=== PATIENT | male | born 1945 | race Caucasian/White ===

== ENCOUNTER 2016-11-28 21:31 | Emergency (ER) | payer MEDICARE, OTHER ==
[2016-11-28] MEDS ORDERED: Cephalexin CAP* 500 MG PO ONE ×2 (22:31)
--- NOTE | 2016-11-28 22:42 | ED ---
Skin Complaint - HPI Summary HPI Summary: Patient presents with redness and pain on his anterolateral left calf. 3 days ago he noticed a pimple on his leg and over the next two days it became more irritated. He has peripheral edema at baseline, with the left greater than the right, and wears compression stockings. Today he gardened all day and his leg was irritated by the stockings by the end of the day. He denies fever, chills, drainage, calf pain or SOB. - History of Current Complaint Chief Complaint: EDExtremityLower Time Seen by Provider: 11/28/16 21:58 Stated Complaint: LEFT LEG INFECTION/SPREADING Hx Obtained From: Patient Onset/Duration: Started Days Ago - 3 Timing: Constant Onset Severity: Mild Current Severity: Moderate Pain Intensity: 6 Skin Location: Leg Character: Swelling, Pain, Redness Aggravating Symptom(s): Touch Alleviating Symptom(s): Nothing Associated Signs & Symptoms: Tenderness - Allergy/Home Medications Allergies/Adverse Reactions: Allergies Allergy/AdvReac Type Severity Reaction Status Date / Time No Known Allergies Allergy Verified 12/28/14 15:46 Home Medications: Home Medications Nisoldipine [Sular] 5 mg PO 11/28/16 [History] PMH/Surg Hx/FS Hx/Imm Hx Cardiovascular History: Reports: Hx Atrial Fibrillation, Hx Deep Vein Thrombosis , Hx Myocardial Infarction Infectious Disease History: No Infectious Disease History: Denies: Traveled Outside the [place] in Last 30 Days - Family History Known Family History: Positive: Cardiac Disease, Hypertension - Social History Occupation: Retired Lives: With Family Alcohol Use: None Substance Use Type: Reports: None Smoking Status (MU): Former Smoker Review of Systems Negative: Fever, Chills Positive: Other - erythema left anterolateral roberts Negative: Paresthesia, Numbness All Other Systems Reviewed And Are Negative: Yes Physical Exam Triage Information Reviewed: Yes Vital Signs On Initial Exam: Initial Vitals Temp Pulse Resp BP Pulse Ox 99 F 78 18 135/73 99 11/28/16 21:35 11/28/16 21:35 11/28/16 21:35 11/28/16 21:35 11/28/16 21:35 Vital Signs Reviewed: Yes Appearance: Positive: Well-Appearing, No Pain Distress, Well-Nourished Skin: Positive: Warm, Skin Color Reflects Adequate Perfusion, Dry, Tender, Soft , Erythema @ - 3 cm area of erythema without fluctuance or streaking. Head/Face: Positive: Normal Head/Face Inspection Eyes: Positive: EOMI, KAYCEE, Conjunctiva Clear ENT: Positive: Hearing grossly normal Respiratory/Lung Sounds: Positive: Breath Sounds Present Cardiovascular: Positive: RRR Musculoskeletal: Positive: Strength/ROM Intact, Pain @ - TTP anterolateral aspect of left roberts, Edema Left - baseline. Negative: Carter Sign Left Neurological: Positive: Sensory/Motor Intact, Alert, Oriented to Person Place, Time, NV Bundle Intact Distally, Normal Gait Psychiatric: Positive: Affect/Mood Appropriate AVPU Assessment: Alert - [place] Coma Scale Coma Scale Total: 15 Diagnostics - Vital Signs Vital Signs Temp Pulse Resp BP Pulse Ox 11/28/16 21:44 98.8 F 77 16 131/88 96 11/28/16 21:35 99 F 78 18 135/73 99 - Laboratory Lab Statement: Any lab studies that have been ordered have been reviewed, and results considered in the medical decision making process. Course/Dx - Differential Diagnoses - Skin Complaint Differential Diagnoses: Abscess, Cellulitis, Contact Dermatitis, Local Allergic Reaction, MRSA, Urticaria - Diagnoses Provider Diagnoses: Cellulitis Discharge - Discharge Plan Condition: Stable Disposition: HOME Prescriptions: Cephalexin CAP* [Keflex CAP*] 500 mg PO QID #39 cap Patient Education Materials: Cellulitis (ED) Referrals: Ned Easley MD [Primary Care Provider] - Additional Instructions: Please take the antibiotics as prescribed until they are completely gone. Elevate your leg above your heart to decrease swelling. Antibiotics can increase the blood thinning effects of Warfarin so let your provider know you have begun this medication. Follow-up with your PCP on Wednesday for re- evaluation. Return to the emergency department is symptoms worsen.
[2016-11-28 23:13] VITALS: BP 128/78
== END 2016-11-28 23:22 | disposition home or self-care (01) ==
LOC: ED 21:31
DX: L03.90 Cellulitis, unspecified (principal); L53.9 Erythematous condition, unspecified; Z87.891 Personal history of nicotine dependence
CPT/HCPCS: 99282; A9270-GY

== ENCOUNTER 2018-11-13 15:03 | Emergency (ER) | payer MEDICARE, OTHER ==
[2018-11-13 15:16] VITALS: BP 132/72
--- NOTE | 2018-11-13 16:41 | ED ---
Lower Extremity - HPI Summary HPI Summary: Pt. is a 73 y.o male who presents to the ER for right foot pain that started last night. Pt. states he was working in his garden yesterday, digging up dirt with a shovel using his right foot. Pt. states he noticed pain to his right foot last night. Pt. took a dose of motrin and pain improved. Pt. states his sister was concerned he may have a DVT. Pt. notes hx of a fib and is on eliquis. Sxs are mild in severity. Walking makes sxs worse. Rest makes sxs better. - History of Current Complaint Chief Complaint: EDExtremityLower Stated Complaint: "RT FOOT POSSIBLE BLOOD CLOT PER PT" Time Seen by Provider: 11/13/18 15:25 Hx Obtained From: Patient Pain Intensity: 3 - Allergies/Home Medications Allergies/Adverse Reactions: Allergies Allergy/AdvReac Type Severity Reaction Status Date / Time No Known Allergies Allergy Verified 11/13/18 15:11 PMH/Surg Hx/FS Hx/Imm Hx Previously Healthy: Yes Cardiovascular History: Reports: Hx Atrial Fibrillation, Hx Deep Vein Thrombosis , Hx Myocardial Infarction Infectious Disease History: No Infectious Disease History: Denies: Traveled Outside the [place] in Last 30 Days - Family History Known Family History: Positive: Cardiac Disease, Hypertension - Social History Occupation: Retired Lives: Alone Alcohol Use: None Substance Use Type: Reports: None Smoking Status (MU): Former Smoker Review of Systems Skin: Negative Neurological: Negative Negative: Weakness, Paresthesia, Numbness All Other Systems Reviewed And Are Negative: Yes Physical Exam Triage Information Reviewed: Yes Vital Signs On Initial Exam: Initial Vitals Temp Pulse Resp BP Pulse Ox 98.2 F 64 18 132/72 97 11/13/18 15:11 11/13/18 15:11 11/13/18 15:11 11/13/18 15:11 11/13/18 15:11 Vital Signs Reviewed: Yes Appearance: Positive: Well-Appearing - Pt. sitting on bed in NAD, reading a newspaper. Skin: Positive: Warm, Dry Head/Face: Positive: Normal Head/Face Inspection Eyes: Positive: Normal, EOMI Neck: Positive: Supple Musculoskeletal: Positive: Other - Good right pedal pulse. Pain on palpation to lateral right foot. No wounds or redness. No calf tenderness, edema or erythema. Neurological: Positive: Normal, CN Intact II-III Psychiatric: Positive: Affect/Mood Appropriate Diagnostics - Vital Signs Vital Signs Temp Pulse Resp BP Pulse Ox 11/13/18 15:11 98.2 F 64 18 132/72 97 - Laboratory Lab Statement: Any lab studies that have been ordered have been reviewed, and results considered in the medical decision making process. Lower Extremity Course/Dx - Course Course Of Treatment: Pt. with foot pain after digging with a shovel. No evidence of DVT or infection on exam. Xray shows chronic changes per radiology. Pt. re-assured. To ice and elevate. Advised to avoid motrin and take tylenol. To r.u with PCP if pain persist. Pt. understands and agrees with plan. Will return to ER for calf pain or swelling. - Diagnoses Differential Diagnosis/HQI/PQRI: Positive: Contusion, Fracture (Closed), Sprain , Strain Provider Diagnoses: Foot sprain Discharge - Sign-Out/Discharge Documenting (check all that apply): Patient Departure Patient Received Moderate/Deep Sedation with Procedure: No - Discharge Plan Condition: Good Disposition: HOME Patient Education Materials: Foot Sprain (ED) Referrals: Ned Easley MD [Primary Care Provider] - Additional Instructions: Follow up with your PCP if pain persist Ice and elevate intermittently Tylenol for pain as directed Return to ER for leg swelling, pain, redness, or if concerned - Billing Disposition and Condition Condition: GOOD Disposition: Home
== END 2018-11-13 17:11 | disposition home or self-care (01) ==
LOC: ED 15:03
DX: S93.601A Unspecified sprain of right foot, initial encounter (principal); X58.XXXA Exposure to other specified factors, initial encounter; Y93.H2 Activity, gardening and landscaping; Y92.017 Garden or yard in single-family (private) house as the place of occurrence of the external cause; Y99.8 Other external cause status; Z87.891 Personal history of nicotine dependence
CPT/HCPCS: 99282

== ENCOUNTER 2021-09-27 14:25 | Inpatient (IN) ==
[2021-09-27 15:00] LABS: ABS Eosinophils 0.1 10^3/ul (0-0.6); ABS Lymphocytes 0.8 10^3/ul (1.0-4.8); ABS Monocytes 0.6 10^3/ul (0-0.8); ABS Neutrophils 4.3 10^3/ul (1.5-7.7); Eosinophil % 1.6 %; Hematocrit 37 % (42-52); Hemoglobin 12.4 g/dL (14.0-18.0); Lymphocyte % 14.3 %; Mean Corpuscular HGB Conc 34 g/dL (31-36); Mean Corpuscular Hemoglobin 33 pg (27-31); Mean Corpuscular Volume 98 fL (80-94); Mean Platelet Volume 9.7 fL (7.4-10.4); Platelet Count 113 10^3/uL (150-450); Red Blood Count 3.72 10^6 /uL (4.18-5.48); Red Cell Distribution Width 15 % (10-15); White Blood Count 5.9 10^3/uL (3.5-10.8)
[2021-09-27 15:12] LABS: INR 1.41 (0.86-1.15)
[2021-09-27 16:03] LABS: High Sensitivity Troponin 1 Hr 39 pg/mL (<20)
[2021-09-27 16:08] LABS: Albumin 3.8 g/dL (3.2-5.2); Albumin/Globulin Ratio 1.7 (1-3); Calcium 8.8 mg/dL (8.6-10.3); Globulin 2.2 g/dL (2-4); Potassium 4.3 mmol/L (3.5-5.0); Total Bilirubin 1.6 mg/dL (0.2-1.0); eGFR CKD-EPI 88.9 (>60)
[2021-09-27] MEDS ORDERED: Albuterol HFA INHALER 8 gm MDI INH ONE (16:37)
[2021-09-27] MEDS ORDERED: Iodixanol (CONTRAST) 320 MG/ML 100 ML SDV IV ONE (16:38)
[2021-09-27] MEDS ORDERED: Furosemide 40 mg/4 ml IV VIAL IV SLOW PU ONE (18:18)
[2021-09-27] MEDS ORDERED: Ondansetron 4 mg VIAL 2 MG/ML 2 ml VIAL IV PRN (20:26)
[2021-09-27] MEDS: Cholecalciferol (VIT D3) 1,000 unit TAB PO SCH (23:45)
[2021-09-27] MEDS: Potassium Chlor 10 meq TAB PO SCH (23:46)
[2021-09-28 06:48] LABS: ABS Eosinophils 0.1 10^3/ul (0-0.6); ABS Lymphocytes 0.8 10^3/ul (1.0-4.8); ABS Monocytes 0.6 10^3/ul (0-0.8); ABS Neutrophils 3.9 10^3/ul (1.5-7.7); Eosinophil % 1.7 %; Hematocrit 36 % (42-52); Hemoglobin 12.4 g/dL (14.0-18.0); Lymphocyte % 15.1 %; Mean Corpuscular HGB Conc 34 g/dL (31-36); Mean Corpuscular Hemoglobin 34 pg (27-31); Mean Corpuscular Volume 98 fL (80-94); Mean Platelet Volume 9.2 fL (7.4-10.4); Platelet Count 106 10^3/uL (150-450); Red Blood Count 3.69 10^6 /uL (4.18-5.48); Red Cell Distribution Width 14 % (10-15); White Blood Count 5.4 10^3/uL (3.5-10.8)
[2021-09-28 07:25] LABS: Calcium 8.6 mg/dL (8.6-10.3); Magnesium 2.1 mg/dL (1.9-2.7); Potassium 3.7 mmol/L (3.5-5.0); eGFR CKD-EPI 92.4 (>60)
[2021-09-28] MEDS ORDERED: Potassium Chlor 20 meq TAB.ER PO ONE (07:34)
[2021-09-28 07:42] LABS: Ferritin 25.5 ng/mL (24-336)
[2021-09-28] MEDS ORDERED: Furosemide 40 mg/4 ml IV VIAL IV SLOW PU SCH (09:00)
[2021-09-28] MEDS: Potassium Chlor 10 meq TAB PO SCH ×2 (09:09→20:17)
[2021-09-28] MEDS: Aspirin EC 81 mg TAB.EC (enteric coated) PO SCH (09:10)
[2021-09-28] MEDS: Cholecalciferol (VIT D3) 1,000 unit TAB PO SCH ×2 (09:10→20:17)
[2021-09-28] MEDS: Coenzyme Q10 CAP (NF) ** ENTER STREGNTH IN LABEL DIRECTIONS PO SCH (10:56)
[2021-09-28] MEDS: FINASTERIDE 1 MG PO SCH (10:56)
[2021-09-28] MEDS ORDERED: Cyanocobalamin INJ 1,000 MCG/ML VIAL 1 ML VIAL IM ONE (13:06)
[2021-09-28] MEDS: Magnesium Hydroxide LIQ 30 ML UDC PO PRN (21:40)
[2021-09-29 05:36] LABS: ABS Eosinophils 0.2 10^3/ul (0-0.6); ABS Lymphocytes 0.9 10^3/ul (1.0-4.8); ABS Monocytes 0.6 10^3/ul (0-0.8); Eosinophil % 3.2 %; Hematocrit 37 % (42-52); Hemoglobin 12.5 g/dL (14.0-18.0); Lymphocyte % 15.5 %; Mean Corpuscular HGB Conc 34 g/dL (31-36); Mean Corpuscular Hemoglobin 34 pg (27-31); Mean Corpuscular Volume 99 fL (80-94); Mean Platelet Volume 9.6 fL (7.4-10.4); Platelet Count 111 10^3/uL (150-450); Red Blood Count 3.72 10^6 /uL (4.18-5.48); Red Cell Distribution Width 15 % (10-15); White Blood Count 5.7 10^3/uL (3.5-10.8)
[2021-09-29 05:51] LABS: Calcium 8.6 mg/dL (8.6-10.3); Magnesium 2.2 mg/dL (1.9-2.7); eGFR CKD-EPI 90.6 (>60)
[2021-09-29] MEDS ORDERED: Furosemide 40 mg/4 ml IV VIAL IV ONE (08:00)
[2021-09-29] MEDS: Potassium Chlor 10 meq TAB PO SCH ×2 (09:20→20:48)
[2021-09-29] MEDS: Aspirin EC 81 mg TAB.EC (enteric coated) PO SCH (09:21)
[2021-09-29] MEDS: Cholecalciferol (VIT D3) 1,000 unit TAB PO SCH ×2 (09:21→20:48)
[2021-09-29] MEDS: FINASTERIDE 1 MG PO SCH (09:32)
[2021-09-29] MEDS: Coenzyme Q10 CAP (NF) ** ENTER STREGNTH IN LABEL DIRECTIONS PO SCH (09:32)
[2021-09-30 06:03] LABS: ABS Eosinophils 0.2 10^3/ul (0-0.6); ABS Lymphocytes 0.9 10^3/ul (1.0-4.8); ABS Monocytes 0.5 10^3/ul (0-0.8); ABS Neutrophils 2.7 10^3/ul (1.5-7.7); Eosinophil % 4.7 %; Hematocrit 36 % (42-52); Hemoglobin 12.3 g/dL (14.0-18.0); Lymphocyte % 21.4 %; Mean Corpuscular HGB Conc 34 g/dL (31-36); Mean Corpuscular Hemoglobin 34 pg (27-31); Mean Corpuscular Volume 99 fL (80-94); Mean Platelet Volume 9.2 fL (7.4-10.4); Platelet Count 122 10^3/uL (150-450); Red Blood Count 3.65 10^6 /uL (4.18-5.48); Red Cell Distribution Width 14 % (10-15); White Blood Count 4.4 10^3/uL (3.5-10.8)
[2021-09-30 06:24] LABS: Calcium 8.8 mg/dL (8.6-10.3); Magnesium 2.3 mg/dL (1.9-2.7); Potassium 4.1 mmol/L (3.5-5.0); eGFR CKD-EPI 88.9 (>60)
[2021-09-30] MEDS ORDERED: Furosemide 40 mg/4 ml IV VIAL IV ONE (07:08)
[2021-09-30] MEDS ORDERED: Furosemide 40 mg/4 ml IV VIAL IV SLOW PU SCH (09:00)
[2021-09-30] MEDS: Cholecalciferol (VIT D3) 1,000 unit TAB PO SCH ×2 (09:36→22:32)
[2021-09-30] MEDS: Potassium Chlor 10 meq TAB PO SCH ×2 (09:37→22:31)
[2021-09-30] MEDS: Aspirin EC 81 mg TAB.EC (enteric coated) PO SCH (09:37)
[2021-09-30] MEDS: FINASTERIDE 1 MG PO SCH (09:53)
[2021-09-30] MEDS: Coenzyme Q10 CAP (NF) ** ENTER STREGNTH IN LABEL DIRECTIONS PO SCH (09:53)
[2021-09-30] MEDS ORDERED: NS 0.9% 1000 ml BAG 1,000 ML IV SCH (10:00)
[2021-09-30] MEDS ORDERED: VERAPAMIL 2.5 MG/ML 2 ML VIAL ** 5 mg/2 ml ONE (14:07)
[2021-09-30] MEDS ORDERED: fentaNYL 100 mcg/2 ml 50 MCG/ML VIAL ONE (14:07)
[2021-09-30] MEDS ORDERED: Midazolam 5 mg/5 ml VIAL 1 mg/ml 5 ml VIAL (5 mg) ONE (14:07)
[2021-09-30] MEDS ORDERED: Iohexol 350 (CONTRAST) 200 ML MDV IV ONE (14:08)
[2021-09-30] MEDS ORDERED: Heparin 2 UNITS/ML 1000 mls 2,000 ML IV ONE (14:08)
[2021-09-30] MEDS ORDERED: Heparin 1,000 UNIT/ML 10 ml (10,000 UNITS) CATHLAB/DIALYSIS ONE (14:08)
[2021-09-30] MEDS ORDERED: nitroGLYCERIN DRIP (PHA MIX) 25,000 MCG/250 ML BAG ONE (14:08)
[2021-09-30] MEDS ORDERED: Lidocaine 1% MPF 5 ML VIAL ONE (14:23)
[2021-09-30] MEDS: Enoxaparin 100 MG/ML SYR SUBCUT SCH (18:22)
[2021-09-30] MEDS: Magnesium Hydroxide LIQ 30 ML UDC PO PRN (22:39)
[2021-10-01 06:44] LABS: ABS Eosinophils 0.2 10^3/ul (0-0.6); ABS Monocytes 0.5 10^3/ul (0-0.8); ABS Neutrophils 2.5 10^3/ul (1.5-7.7); Hematocrit 35 % (42-52); Hemoglobin 11.9 g/dL (14.0-18.0); Lymphocyte % 24.6 %; Mean Corpuscular HGB Conc 34 g/dL (31-36); Mean Corpuscular Hemoglobin 34 pg (27-31); Mean Corpuscular Volume 99 fL (80-94); Mean Platelet Volume 8.9 fL (7.4-10.4); Nucleated Red Blood Cells % 0.1; Platelet Count 125 10^3/uL (150-450); Red Blood Count 3.49 10^6 /uL (4.18-5.48); Red Cell Distribution Width 15 % (10-15); White Blood Count 4.2 10^3/uL (3.5-10.8)
[2021-10-01] MEDS: Enoxaparin 100 MG/ML SYR SUBCUT SCH ×2 (06:44→17:32)
[2021-10-01 07:16] LABS: Potassium 4.1 mmol/L (3.5-5.0)
[2021-10-01 07:17] LABS: Calcium 8.6 mg/dL (8.6-10.3); Magnesium 2.4 mg/dL (1.9-2.7)
[2021-10-01] MEDS: Aspirin EC 81 mg TAB.EC (enteric coated) PO SCH (08:28)
[2021-10-01] MEDS: Cholecalciferol (VIT D3) 1,000 unit TAB PO SCH ×2 (08:28→21:41)
[2021-10-01] MEDS: Potassium Chlor 10 meq TAB PO SCH ×2 (08:28→21:41)
[2021-10-01] MEDS ORDERED: Furosemide 100 mg/10 ml IV VIAL IV ONE (08:30)
[2021-10-01] MEDS: Coenzyme Q10 CAP (NF) ** ENTER STREGNTH IN LABEL DIRECTIONS PO SCH (08:39)
[2021-10-01] MEDS: FINASTERIDE 1 MG PO SCH (08:39)
[2021-10-01 09:22] LABS: Rapid COVID-19 Molecular Undetected (Undetected)
[2021-10-02] MEDS: Enoxaparin 100 MG/ML SYR SUBCUT SCH ×2 (06:08→19:03)
[2021-10-02 06:58] LABS: Calcium 8.8 mg/dL (8.6-10.3); Magnesium 2.3 mg/dL (1.9-2.7)
[2021-10-02] MEDS ORDERED: Furosemide 40 mg/4 ml IV VIAL IV ONE (07:19)
[2021-10-02] MEDS: Cholecalciferol (VIT D3) 1,000 unit TAB PO SCH ×2 (08:29→20:22)
[2021-10-02] MEDS: Aspirin EC 81 mg TAB.EC (enteric coated) PO SCH (08:29)
[2021-10-02] MEDS: Coenzyme Q10 CAP (NF) ** ENTER STREGNTH IN LABEL DIRECTIONS PO SCH (08:30)
[2021-10-02] MEDS: FINASTERIDE 1 MG PO SCH (08:30)
[2021-10-02] MEDS: Potassium Chlor 10 meq TAB PO SCH ×2 (08:30→20:22)
[2021-10-02] MEDS: Magnesium Hydroxide LIQ 30 ML UDC PO PRN (20:22)
[2021-10-03] MEDS: Enoxaparin 100 MG/ML SYR SUBCUT SCH (06:10)
[2021-10-03] MEDS ORDERED: Furosemide 100 mg/10 ml IV VIAL IV ONE (07:30)
[2021-10-03 07:46] VITALS: BP 130/62
[2021-10-03] MEDS: Cholecalciferol (VIT D3) 1,000 unit TAB PO SCH (07:57)
[2021-10-03] MEDS: Aspirin EC 81 mg TAB.EC (enteric coated) PO SCH (07:57)
[2021-10-03] MEDS: Potassium Chlor 10 meq TAB PO SCH (07:58)
[2021-10-03] MEDS: FINASTERIDE 1 MG PO SCH (08:03)
[2021-10-03] MEDS: Coenzyme Q10 CAP (NF) ** ENTER STREGNTH IN LABEL DIRECTIONS PO SCH (08:03)
[2021-10-03 08:40] LABS: Magnesium 2.5 mg/dL (1.9-2.7); Potassium 4.5 mmol/L (3.5-5.0); eGFR CKD-EPI 88.6 (>60)
== END 2021-10-03 08:30 | disposition short-term general hospital (02) | DRG 287 ==
LOC: MEDTELE 14:25 → ED 14:25 → SUATTDRO 20:26
PROVIDERS: ADMIT Internal Medicine; ATTEND Internal Medicine

== ENCOUNTER 2022-12-23 08:32 | Observation (INO) ==
[~2022-12-23 08:32] MED LIST: NS 0.9% 1000 ml BAG 1,000 ML IV SCH; ceFAZolin 2 GM PREMIX 2 GM/50 ML BAG IV ONE; ceFAZolin 2 GM in NS PREMIX 2 GM/100 ML BAG IVPB ONE
[2022-12-23] MEDS ORDERED: ceFAZolin 2 GM PREMIX 2 GM/50 ML BAG IV ONE (09:00)
[2022-12-23 09:31] LABS: ABS Eosinophils 0.1 10^3/uL (0.0-0.5); ABS Monocytes 0.7 10^3/uL (0.0-1.1); ABS Neutrophils 2.3 10^3/uL (1.5-7.6); Hematocrit 29.1 % (38-53); Hemoglobin 9.3 g/dL (13.2-16.3); Lymphocyte % 23.8 %; Mean Corpuscular Hgb Conc 32.1 g/dL (31-36); Mean Platelet Volume 7.4 fL (7.5-11.2); Platelet Count 194 10^3/uL (150-450); Red Blood Count 3.73 10^6/uL (4.06-5.63); Red Cell Distribution Width 17.9 % (12-17); White Blood Count 4.2 10^3/uL (3.6-10.2)
[2022-12-23 09:40] LABS: Activated Partial Thrombo Time 33.8 seconds (26.0-38.0); INR 1.4 (0.88-1.18)
[2022-12-23] MEDS ORDERED: fentaNYL 100 mcg/2 ml 50 MCG/ML VIAL IV SLOW PU ONE (09:41)
[2022-12-23] MEDS ORDERED: Midazolam 10 mg/10 ml VIAL 1 mg/ml 10 ml VIAL (10 mg) IV SLOW PU ONE (09:41)
[2022-12-23 09:49] LABS: Calcium 8.9 mg/dL (8.6-10.3); Creatinine, Serum 0.92 mg/dL (0.67-1.17); Potassium 4.2 mmol/L (3.5-5.0); eGFR CKD-EPI 84.6 (>60)
[2022-12-23] MEDS ORDERED: Iohexol 300 (CONTRAST) 10 ML SDV ONE (10:02)
[2022-12-23] MEDS ORDERED: fentaNYL 100 mcg/2 ml 50 MCG/ML VIAL ONE (10:02)
[2022-12-23] MEDS ORDERED: Midazolam 5 mg/5 ml VIAL 1 mg/ml 5 ml VIAL (5 mg) ONE (10:02)
[2022-12-23] MEDS ORDERED: Lidocaine 1% VIAL 10 MG/ML VIAL 30 ML ONE (10:02)
[2022-12-23] MEDS ORDERED: TERBINAFINE HCL 1% TOPICAL PRN (11:45)
[2022-12-23] MEDS ORDERED: Magnesium Hydroxide LIQ 30 ML UDC PO PRN (11:45)
[2022-12-23 12:33] LABS: % Iron Saturation 4 % (15-55); .Transferrin 352 mg/dL (203-362); Iron < 20 ug/dL (50-212); Total Iron Binding Capacity 493 mcg/dL (250-450); Unsaturated Iron Binding 473 ug/dL
[2022-12-23] MEDS ORDERED: AMMONIUM LACTATE 12% TOPICAL PRN (13:28)
[2022-12-23 14:21] LABS: Ferritin 9.3 ng/mL (24-336)
[2022-12-23] MEDS ORDERED: Iron Sucrose 200 MG in NS 0.9% 100 ml BAG 100 ML IVPB ONE (15:30)
[2022-12-23 15:46] LABS: Vitamin B12 160 pg/mL (180-914)
[2022-12-23] MEDS ORDERED: Cyanocobalamin INJ 1,000 MCG/ML VIAL 1 ML VIAL IM SCH (17:00)
[2022-12-23] MEDS: ceFAZolin 1 GM in Dextrose 1 GM/50 ML BAG IVPB SCH (18:11)
[2022-12-23] MEDS ORDERED: FINASTERIDE 1 MG PO SCH (21:00)
[2022-12-23] MEDS: Potassium Chlor 10 meq TAB PO SCH (22:42)
[2022-12-24] MEDS: ceFAZolin 1 GM in Dextrose 1 GM/50 ML BAG IVPB SCH ×2 (01:45→11:19)
[2022-12-24] MEDS: Potassium Chlor 10 meq TAB PO SCH (08:52)
[2022-12-24] MEDS ORDERED: NF: DAPAGLIFLOZIN 10 MG TAB (NF) PO SCH (09:00)
[2022-12-24 11:11] VITALS: BP 121/70
== END 2022-12-24 13:16 | disposition home or self-care (01) ==
LOC: CHICATH 08:32 → MEDTELE 08:32
PROVIDERS: ADMIT Specialist; ATTEND Specialist